=== PATIENT | female | born 1995 | race Caucasian/White ===

== ENCOUNTER 2016-08-11 21:23 | Emergency (ER) | payer OTHER ==
[~2016-08-11] VITALS: Ht 162.6 cm; Wt 69.7 kg
[~2016-08-11 21:23] MED LIST: DIPH25CA37 PO; LORA24TA7 PO; PRED20TA PO; SPIR50TA2 PO; TRIA1SPR2 NAE
[2016-08-11 21:36] VITALS: TEMP 36.6; Ht 162.6 cm; Wt 69.7 kg
[2016-08-11] MEDS ORDERED: LORA10TA5 PO (22:10)
[2016-08-11] MEDS ORDERED: DIPH25CA5 PO (22:10)
[2016-08-11] MEDS ORDERED: TRIA55SP NAE (22:10)
[2016-08-11] MEDS ORDERED: PRVHFAIN INH (22:10)
--- NOTE | 2016-08-11 22:29 | DIAGNOSTIC IMAGING REPORT ---
CT HEAD WITHOUT CONTRAST (CT) CLINICAL HISTORY: Head pain status post trauma COMPARISON STUDY: No previous studies for comparison. TECHNIQUE: Axial CT of the brain is performed from the vertex to the skull base. IV contrast was not administered for this examination. CT DOSE: 537.48 mGy.cm FINDINGS: No intra or extra-axial mass lesions are visualized. There is no CT evidence of acute cortical infarction. There is no evidence of midline shift. There is no acute hemorrhage. No calvarial fractures are visualized. There is no evidence of pathologic ventricular dilatation. There is no evidence of acute sinusitis IMPRESSION: Normal noncontrast head CT. Electronically signed by: Dominic Cuello M.D. 08/11/2016 10:27 PM Dictated Date/Time: 08/11/2016 10:25 PM
--- NOTE | 2016-08-11 22:34 | EMERGENCY ROOM VISIT NOTE ---
ED Visit Note First contact with patient: 21:57 CHIEF COMPLAINT: Head injury HISTORY OF PRESENT ILLNESS: This 21 old female patient presented to the emergency department ambulatory after receiving a head injury when she and a friend bumped heads earlier today. There was no brief loss of consciousness or vomiting. No difficulty with speech. The headache has been moderate. The patient complains of no neck pain. No loss of apetite or unusual behavior since the injury. The patient has taken nothing for the pain. The patient rates the pain as 7/10 and sharp. The patient denies any changes in their vision or hearing. The patient denies bowel or bladder dysfunction. The patient denies abdominal pain. She has a history of concussion 4. REVIEW OF SYSTEMS: A 6 system review of systems was completed with positives and pertinent negatives listed in the HPI. ALLERGIES: No known drug allergies MEDICATIONS: Allergy medication PMH: None SOCIAL HISTORY: The patient is a student. PHYSICAL EXAM: Vital Signs: Reviewed Nurse's notes, vital signs stable. GENERAL : This is a 21 year old female, in no acute distress, well-developed, well- nourished. NEURO: The patient is alert, oriented to person place and time, and coherent. Normal mini mental status exam. Negative Romberg and pronator drift. Cerebellar function intact. HEAD: Normocephalic and atraumatic. EYES: Pupils are equal round and reactive to light and accommodation. EOMs are full and optic discs and fundi are normal. There is no swelling or discoloration of the tissue surrounding the eyes. EARS: External auditory canals clear without blood. NOSE: Patent without tenderness. No septal hematoma. FACE: No facial tenderness. NECK: Supple. There is no cervical spine tenderness. The patient does not have tenderness with movement of the neck. ED COURSE: I examined the patient. The patient bumped heads with another individual. She did not get knocked out. I discussed the risks, benefits and alternatives of CT scan of the brain. I feel that the likelihood of intracranial bleeding or skull fracture is quite low. She would like to proceed with a CT scan anyway. The CT scan was obtained. There was no evidence for intracranial bleeding or skull fracture. She should follow-up with the concussion clinic if symptoms persist. She should return to the ER with worsening symptoms. The patient was discharged home in good condition ambulatory. GCS: 15 CT HEAD WITHOUT CONTRAST (CT) CLINICAL HISTORY: Head pain status post trauma COMPARISON STUDY: No previous studies for comparison. TECHNIQUE: Axial CT of the brain is performed from the vertex to the skull base. IV contrast was not administered for this examination. CT DOSE: 537.48 mGy.cm FINDINGS: No intra or extra-axial mass lesions are visualized. There is no CT evidence of acute cortical infarction. There is no evidence of midline shift. There is no acute hemorrhage. No calvarial fractures are visualized. There is no evidence of pathologic ventricular dilatation. There is no evidence of acute sinusitis IMPRESSION: Normal noncontrast head CT. Current/Historical Medications Scheduled Diphenhydramine Hcl (Benadryl), 25 MG PO HS Loratadine (Claritin), 10 MG PO DAILY Montelukast Sodium (Singulair), 10 MG PO QAM Scheduled PRN Albuterol (Ventolin Hfa), 2 PUFFS INH Q4H PRN for SOB/Wheezing Triamcinolone Acetonide (Nasal ([facility] Nasal Allergy [place]), 2 SPRAYS CECILIA DAILY PRN for Nasal Congestion Allergies Coded Allergies: No Known Allergies (Unverified , 08/15/15) Vital Signs Date Time Temp Pulse Resp B/P Pulse Ox O2 Delivery O2 Flow Rate FiO2 08/11/16 22:45 85 18 129/78 99 08/11/16 21:36 18 08/11/16 21:36 36.6 88 18 134/91 98 Room Air Departure Information Impression Primary Impression: Closed head injury Dispostion Home / Self-Care Condition GOOD Referrals No Doctor, Assigned (PCP) Patient Instructions ED Head Injury Closed, [facility] Additional Instructions Contact the concussion clinic at [facility] sports medicine ([phone]) to schedule a follow-up appointment for further evaluation and management. Their office is located at [address] [place] [address]. [address] No gym or athletics for one week after symptoms resolve Problem Qualifiers Primary Impression: Closed head injury Encounter type: initial encounter Qualified Codes: S09.90XA - Unspecified injury of head, initial encounter
[2016-08-11 22:45] VITALS: BP 129/78; PULSE 85; O2SAT 99
[2017-01-11] MEDS ORDERED: PROM25TA9 PO (14:06)
[2017-01-11] MEDS ORDERED: AMPH10CA3 PO (14:06)
[2017-01-11] MEDS ORDERED: AMT50 PO (14:06)
== END 2016-08-11 22:46 | disposition home or self-care (01) ==
LOC: C.EDB 21:26 → C.EDD 22:46
DX: S09.90XA Unspecified injury of head, initial encounter (principal); W22.8XXA Striking against or struck by other objects, initial encounter; Z79.899 Other long term (current) drug therapy

== ENCOUNTER 2017-01-06 13:18 | Emergency (ER) | payer OTHER ==
[~2017-01-06] VITALS: Ht 162.6 cm; Wt 70.7 kg
[~2017-01-06 13:18] MED LIST changes: +BND25 PO; -DIPH25CA37 PO; +LORA10TA5 PO; -LORA24TA7 PO; -PRED20TA PO; +PRVHFAIN INH; -SPIR50TA2 PO; -TRIA1SPR2 NAE; +TRIA55SP NAE
[2017-01-06 13:25] VITALS: TEMP 36.9; Ht 162.6 cm; Wt 70.7 kg
--- NOTE | 2017-01-06 13:39 | EMERGENCY ROOM VISIT NOTE ---
ED Visit Note First contact with patient: 13:29 This Patient was discussed with the physician Packing Supervisor, Hector Reveles PA-C. The pertinent historical and physical exam findings were confirmed. I agree with the studies ordered and with the interpretations of these studies. I agree with the disposition and care plan.
[2017-01-06] MEDS ORDERED: OFLOXACIN 0.3% OP SOLN 5 ML BTL OTL STA (13:46)
--- NOTE | 2017-01-06 13:50 | EMERGENCY ROOM VISIT NOTE ---
History First contact with patient: 13:29 Chief Complaint: FOREIGNBODY ANY BODY PART Stated Complaint: EAR RING STUCK DOWN IN EAR History of Present Illness The patient is a 21 year old female who presents to the Emergency Room via private vehicle referred by [facility] with complaints of "earplug stuck in ear ". The patient states that last night she was at the [employer] football game, and put clear gel earplugs into her ears. She states that the left one was difficult remove therefore she left it in overnight. She tried to get up today , but pushed in further. She states that she tried to use forceps/tweezers to remove it without success. She then went to [facility] she notes that they irrigated it, and used a certain told to try and remove it but sent her here for further evaluation and management. She notes minimal pain, and little bit of decreased hearing after leaving med [facility]quee. Review of Systems A complete 6-point Review of Systems was discussed with the patient, with pertinent positives and negatives listed in the History of Present Illness. All remaining Review of Systems questions can be considered negative unless otherwise specified. Past Medical/Surgical History Asthma, tonsils and adenoids, pilonidal cyst, concussions. Family History Melanoma Social History Smoking Status: Never Smoker Drug Use: none Marital Status: single Occupation Status: [employer] student Patient lives at home with roommates. Current/Historical Medications Scheduled Amitriptyline Hcl (Elavil), 50 MG PO HS Amphetamine-Dextroamphetamine 10MG (Adderall Xr 10MG), 10 MG PO DAILY Montelukast Sodium (Singulair), 10 MG PO QAM Ofloxacin (Otic) (Floxin Otic), 1 DROPS OTL DIRECTED Sumatriptan Succinate (Imitrex), 25 MG PO PRN Scheduled PRN Promethazine Hcl (Phenergan), 25 MG PO Q6H PRN for Nausea Physical Exam Vital Signs Date Time Temp Pulse Resp B/P (MAP) Pulse Ox O2 Delivery O2 Flow Rate FiO2 01/06/17 14:17 66 16 115/76 98 01/06/17 13:25 36.9 98 18 135/85 96 Room Air Physical Exam VITAL SIGNS - Vital signs and nursing notes were reviewed. Stable. GENERAL -21-year-old female appearing her stated age who is in no acute distress. Communicates well with provider and answers questions appropriately. SKIN - Without rashes. The external left ear is unremarkable. HEAD - NC/AT. EYES - Sclera anicteric. EARS - No deformities of external structures noted on gross examination bilaterally. No pain elicited with palpation of the tragus bilaterally. External auditory canals without discharge or otorrhea. Left ear canal is unremarkable, but the left TM is slightly retracted, and does appear to be ruptured. There is a small amount of dependent debris at the base, suspected to be either a small portion of the TM or small piece of gel. NOSE - Midline and without cyanosis. No epistaxis or purulent drainage noted. Septum midline without deviation or septal hematoma noted. Medical Decision & Procedures Medications Administered Medications (Trade) Dose Ordered Sig/Venkat Route Start Time Stop Time Status Last Admin Dose Admin Ofloxacin (Ocuflox 0.3% Oph Soln) 1 drops NOW STAT OTL 01/06/17 13:46 01/06/17 13:49 DC 01/06/17 14:16 1 DROPS Medical Decision Patient was seen and evaluated as above. After obtaining a thorough history and physical examination it was apparent that the patient had most likely experienced a traumatic eardrum rupture. It is unclear at what point she sustained this, however upon her arrival here it was ruptured. I also had the attending physician examined the patient here. We were careful so as to not perform any removal or insert anything into the ear other than a shallow speculum for examination. I discussed the case with the on-call your nose and throat doctor, Dr. Squires at 1:45 PM. He recommended having the patient call the office first thing tomorrow for a follow-up on Saturday which she may also have audiologic testing. He recommended ofloxacin drops for prophylaxis against infection. Patient at this time appears stable for outpatient management, was educated upon worrisome symptoms in which to return, had questions answered prior to discharge, and was discharged home in good condition. In the evaluation and treatment this patient the following differential diagnoses were entertained: Retained foreign body, traumatic tympanic rupture, among others. Impression Primary Impression: Tympanic membrane rupture, traumatic Departure Information Dispostion Home / Self-Care Condition GOOD Prescriptions Ofloxacin (Otic) (FLOXIN OTIC) 0.3 % Mendel 1 DROPS OTL DIRECTED, #10 ML Instill 2 to 3 drops once daily until complete closure of perforation is confirmed Prov: Hector Reveles PA-C 01/06/17 Referrals No Doctor, Assigned (PCP) Keira Squires M.D. Patient Instructions [facility] Additional Instructions You have been treated in the Emergency Department for irritation to her left ear canal, believed to be a ruptured tympanic membrane. You were prescribed ofloxacin to be taken Instill 2 to 3 drops once daily until complete closure of perforation is confirmed . This is an antibiotic. Stop this medication and contact a medical provider if you were to develop any significant adverse side effects including: wheezing, shortness of breath, passing out, vomiting, or a diffuse rash. Always take antibiotics as directed and COMPLETE the ENTIRE course regardless of the improvement of your symptoms. We would like to follow-up with the ear nose and throat doctor, Dr. Squires, who indicated that he would like to see you on Saturday. Please call his office first thing tomorrow morning to schedule that appointment. Please no water in ear canal (no submersion water) until seen and evaluated by the ear nose and throat doctor. Return to the emergency department if you develop the following symptoms despite treatment course outlined above: headache, fever, intractable pain, increased redness, swelling, or purulent discharge. Please return with any new/concerning symptoms.
[2017-01-06] MEDS ORDERED: OFLO0.3D4 OTL (13:58)
[2017-01-06] MEDS ORDERED: SUMA25TA12 PO (14:06)
[2017-01-06 14:17] VITALS: BP 115/76; PULSE 66; O2SAT 98
[2017-01-11] MEDS ORDERED: AMPH10CA3 PO (14:06)
[2017-01-11] MEDS ORDERED: AMT50 PO (14:06)
[2017-01-11] MEDS ORDERED: PROM25TA9 PO (14:06)
== END 2017-01-06 14:18 | disposition home or self-care (01) ==
LOC: C.EDB 13:20 → C.EDD 14:18
DX: S09.22XA Traumatic rupture of left ear drum, initial encounter (principal); X58.XXXA Exposure to other specified factors, initial encounter; Y92.89 Other specified places as the place of occurrence of the external cause; J45.909 Unspecified asthma, uncomplicated; Z80.9 Family history of malignant neoplasm, unspecified; Z79.899 Other long term (current) drug therapy

== ENCOUNTER 2017-01-10 21:34 | Emergency (ER) | payer OTHER ==
[~2017-01-10 21:34] MED LIST changes: -BND25 PO; -LORA10TA5 PO; +OFLO0.3D4 OTL; -PRVHFAIN INH; +SUMA25TA12 PO; -TRIA55SP NAE
[2017-01-11] MEDS ORDERED: PROM25TA9 PO (14:06)
[2017-01-11] MEDS ORDERED: AMT50 PO (14:06)
[2017-01-11] MEDS ORDERED: AMPH10CA3 PO (14:06)
[2017-01-11] MEDS ORDERED: IBUP-1050 PO (17:08)
[2017-01-11] MEDS ORDERED: MONT1TAB3 PO (21:47)
== END 2017-01-10 21:51 | disposition left against medical advice (07) ==
LOC: C.EDB 21:36
DX: G43.909 Migraine, unspecified, not intractable, without status migrainosus (principal)

== ENCOUNTER 2017-01-11 15:28 | Emergency (ER) | payer OTHER ==
[~2017-01-11] VITALS: Ht 162.6 cm; Wt 69.5 kg
[~2017-01-11 15:28] MED LIST changes: +AMPH10CA3 PO; +AMT50 PO; +PROM25TA9 PO
[2017-01-11 15:42] VITALS: TEMP 37.1; Ht 162.6 cm; Wt 69.5 kg
[2017-01-11] MEDS ORDERED: SODIUM CHLORIDE 0.9% 1000ML 1,000 ML IV STA (16:27)
[2017-01-11] MEDS ORDERED: DiphenhydrAMINE HCL 50 MG/ML VIAL IV STA (16:27)
[2017-01-11] MEDS ORDERED: PROCHLORPERAZINE 5 MG/ML 2 ML VIAL IV STA (16:27)
[2017-01-11] MEDS ORDERED: MAGNESIUM SULFATE 1GM / D5W 1 GM BAG IV STA (16:27)
[2017-01-11] MEDS ORDERED: KETOROLAC TROMETHAMINE 30 MG/ML VIAL IV STA (16:27)
--- NOTE | 2017-01-11 16:28 | EMERGENCY ROOM VISIT NOTE ---
History Report prepared by Nilsa: Diana Jackson Under the Supervision of: Dr. Clay Carballo M.D. First contact with patient: 16:13 Chief Complaint: HEADACHE Stated Complaint: MIGRAINE, SPOTTING VISION, SENSITIVITY TO LIGHT History of Present Illness The patient is a 21 year old female who presents to the Emergency Room with complaints of worsening headache for the past 2 days. She came here to the ED for the same symptoms last night, but reports she left without being seen because of the wait and the bright lights worsened her pain. She rates her current discomfort as a 10/10. She went home to sleep and initially felt better today, but after she got home from class, her pain worsened. She went to Physical Therapy, for balance and vision help, but her therapist sent her here to the ED. The patient admits to a history of a concussion this past July and follows with Dr. Elise Wu at [facility]. She admits to nausea but has not vomited. She denies any neck pain or stiffness. She also denies any abdominal pain. The patient also recently had part of an earplug stuck in her ear and was seen by Dr. Squires to have it removed, after [employer] was unable to get the piece out. Source of History: patient Onset: 2 days LIBRARIAN HELPER Position: head Symptom Intensity: 10/10 Timing: worsening Modifying Factors (Worsening): other (light) Associated Symptoms: + nausea, No neck pain, No vomiting, No abdominal pain Review of Systems See HPI for pertinent positives & negatives. A total of 10 systems reviewed and were otherwise negative. Past Medical & Surgical Medical Problems: (1) Concussion Social History Smoking Status: Never Smoker Alcohol Use: occasionally Drug Use: none Marital Status: single Housing Status: lives with roommate Occupation Status: [employer] student Current/Historical Medications Scheduled Amitriptyline Hcl (Elavil), 50 MG PO HS Amphetamine-Dextroamphetamine 10MG (Adderall Xr 10MG), 10 MG PO DAILY Montelukast Sodium (Singulair), 10 MG PO HS Scheduled PRN Ibuprofen (Advil), 800 MG PO Q8 PRN for Headache or Pain Promethazine Hcl (Phenergan), 25 MG PO Q6H PRN for Nausea Allergies Coded Allergies: No Known Allergies (Unverified , 01/06/17) Physical Exam Vital Signs Date Time Temp Pulse Resp B/P (MAP) Pulse Ox O2 Delivery O2 Flow Rate FiO2 01/11/17 18:50 68 18 121/74 97 Room Air 01/11/17 17:30 76 16 116/68 96 Room Air 01/11/17 15:42 37.1 105 20 134/88 100 Room Air Physical Exam GENERAL: Patient is a healthy-appearing well-nourished 21 year old female. HEAD: Normocephalic atraumatic EYES: Ocular movements intact pupils equal and react to light OROPHARYNX mucous membranes are moist no exudates present no erythema or edema present NECK: Supple no nuchal rigidity. No evidence of meningitis or encephalitis on exam. CHEST: Good equal expansion LUNGS: Clear and equal to auscultation CARDIAC: Normal S1 and S2 ABDOMEN: Soft nontender no guarding BACK: No CVA tenderness EXTREMITIES: No pain upon palpation normal muscle strength in all groups no clubbing cyanosis or edema NEURO: Patient is following commands is answering questions appropriately. Alert and oriented x3 Cranial Nerves 2-12 grossly intact Medical Decision & Procedures Medications Administered Medications (Trade) Dose Ordered Sig/Venkat Route Start Time Stop Time Status Last Admin Dose Admin Sodium Chloride 1,000 ml @ 999 mls/hr Q1H1M STAT IV 01/11/17 16:27 01/11/17 17:27 DC 01/11/17 16:27 999 MLS/HR Ketorolac Tromethamine (Toradol Inj) 30 mg NOW STAT IV 01/11/17 16:27 01/11/17 16:30 DC 01/11/17 16:58 30 MG Diphenhydramine HCl (Benadryl Inj) 50 mg NOW STAT IV 01/11/17 16:27 01/11/17 16:30 DC 01/11/17 16:58 50 MG Prochlorperazine Edisylate (Compazine Inj) 10 mg NOW STAT IV 01/11/17 16:27 01/11/17 16:30 DC 01/11/17 16:58 10 MG Magnesium Sulfate (Magnesium Sulfate) 1 gm NOW STAT IV 01/11/17 16:27 01/11/17 16:30 DC 01/11/17 16:59 1 GM Dexamethasone Sodium Phosphate (Decadron Inj) 10 mg NOW STAT IV 01/11/17 17:41 01/11/17 17:43 DC 01/11/17 17:54 10 MG ED Course 1619: Past medical records reviewed. The patient was evaluated in room A2. A complete history and physical examination was performed. 1627: Magnesium Sulfate 1 gm IV, Compazine 10 mg IV, Benadryl 50 mg IV, Toradol 30 mg IV, NSS 1000 ml @ 999 mls/hr IV. 1730: I had a long conversation with the patients Mother. I also recommended if the headaches continue, the patient should get a lumbar puncture. Mom and the patient both refuse at this time. Also, Mom reports the physician the patient is seeing at [facility], Dr. Wu, is not a Neurologist, she's a concussion specialist. 1741: Decadron 10 mg IV. 1755: I reevaluated the patient. She is feeling much better. I discussed her results and discharge instructions and she verbalized complete understanding and agreement. Medical Decision Prior records/ancillary studies reviewed. Triage Nursing notes reviewed. The patient's history was concerning for headache. Differential diagnosis: Etiologies such as migraine headache, meningitis, sinusitis, CO exposure, ICH, SAH, infection, tumor, headache, sinus thrombosis, arterial dissection, as well as others were entertained. This is a 21-year-old female who presents emergency department complaining of her normal migraine headache. The patient has been followed up with a concussion expert at the sports clinic. She is refusing a diagnostic workup and has already had imaging performed of her head. Regardless she does not have any evidence of meningitis or encephalitis on examination. An IV was established, patient given normal saline bolus, Toradol, magnesium, Compazine, Benadryl. Repeat examination revealed much improvement the patient's symptoms. The patient was also given Decadron. I did discuss the case with the patient' s mother who asked if we could get patient in with neurology. As this is after hours on a Saturday afternoon, this was discussed with case management who will follow-up with the patient on Saturday. Medication Reconcilliation Current Medication List: was personally reviewed by me Blood Pressure Screening Patient's blood pressure: Normal blood pressure Blood pressure disposition: Did not require urgent referral Impression Primary Impression: Headache Scribe Attestation The scribe's documentation has been prepared under my direction and personally reviewed by me in its entirety. I confirm that the note above accurately reflects all work, treatment, procedures, and medical decision making performed by me. Departure Information Dispostion Home / Self-Care Referrals No Doctor, Assigned (PCP) Patient Instructions ED Headache Migraine, Headache Migraine Meds Lifestyle, Headache Migraine Triggers Prevent, [facility] Additional Instructions Follow up with DR Jordan's office You received Diphenhydramine medication while in the emergency room today. This is an addictive medication that may cause drowziness as well as constipation. Do not drive, operate heavy machinery, or drink alcohol under the influence of this medication. You have been examined and treated today on an emergency basis only. This is not a substitute for, or an effort to provide, complete comprehensive medical care. It is impossible to recognize and treat all injuries or illnesses in a single emergency department visit. It is therefore important that you follow up closely with [facility]. Call as soon as possible for an appointment. Thank you for your time and consideration. I look forward to speaking with you again soon. Please don't hesitate to call us if you have any questions. Problem Qualifiers Primary Impression: Headache Headache type: unspecified Headache chronicity pattern: unspecified pattern Intractability: not intractable Qualified Codes: R51 - Headache
[2017-01-11] MEDS ORDERED: IBUP-1050 PO (17:08)
[2017-01-11] MEDS ORDERED: DEXAMETHASONE SOD INJ 10 MG/ML VIAL IV STA (17:41)
[2017-01-11 18:50] VITALS: BP 121/74; PULSE 68; O2SAT 97
[2017-01-11] MEDS ORDERED: MONT1TAB3 PO (21:47)
== END 2017-01-11 18:51 | disposition home or self-care (01) ==
LOC: C.EDB 15:30 → C.EDA 18:51
DX: R51 Headache (principal); Z87.820 Personal history of traumatic brain injury; R11.0 Nausea

== ENCOUNTER → 2017-01-22 | Outpatient (CLI) | payer OTHER ==
[~2017-01-22] MED LIST changes: +IBUP-1050 PO; +MONT1TAB3 PO; -OFLO0.3D4 OTL; -SUMA25TA12 PO
--- NOTE | 2017-01-22 18:27 | DIAGNOSTIC IMAGING REPORT ---
MRI OF THE BRAIN WITHOUT IV CONTRAST CLINICAL HISTORY: Headache. Post concussion syndrome. COMPARISON STUDY: CT of the brain dated 08/11/2016. TECHNIQUE: MRI of the brain was performed utilizing various T1 and T2-weighted sequences in the axial, sagittal, and coronal planes. IV contrast was not administered for this examination. FINDINGS: Brain parenchyma: The brain parenchyma is normal in appearance. There is no hemorrhage or mass effect. There is no restricted diffusion to suggest acute ischemia. [place]-white matter differentiation is preserved. No extra-axial fluid collection is seen. The cerebellar tonsils are normal in configuration. Ventricles, sulci, and cisterns: Normal in configuration. Pituitary and sella: Unremarkable. Intracranial vasculature: Normal flow voids are maintained at the skull base. Orbits: The bony orbits are grossly intact. Orbital contents are normal in appearance. Sinuses and mastoids: Clear. Calvarium: Unremarkable. Cervical cord: Partially visualized cervical spinal cord is normal in morphology and signal intensity. IMPRESSION: No acute intracranial abnormality. Electronically signed by: Curtis Sanchez M.D. 01/22/2017 6:25 PM Dictated Date/Time: 01/22/2017 6:23 PM
== END | disposition home or self-care (01) ==
LOC: C.MRI 17:51
PROVIDERS: ATTEND Family Medicine
DX: G43.909 Migraine, unspecified, not intractable, without status migrainosus (principal); F07.81 Postconcussional syndrome